=== PATIENT | female | born 1985 | race Caucasian/White ===

== ENCOUNTER 2016-08-24 20:21 | Emergency (ER) | payer BC ==
[~2016-08-24] VITALS: Ht 162.6 cm; Wt 74.1 kg
[~2016-08-24 20:21] MED LIST: CEPH500T PO; HYDR-4246 PO
--- OUTSIDE RECORDS SUMMARY | 2016-08-24 20:25 | XMS REPORT | Continuity of Care Document ---
Author Author [facility] Organization [facility] Address Unknown Phone Unavailable Support Name Relationship Address Phone OTHER Caregiver Unknown [phone] REYNA LUCAS MD Caregiver [address] [place] [address] [place] [address] NIKKO CRWAFORD Next Of Kin [address] [place] [address] Insurance Providers Payer Name Policy Number Subscriber Name Relationship Self Pay Joi Crawford 17 Self Problems Medical Problems Problem Onset Date Status Kidney stone on right side Unknown Active Medications Medication Dose Route Sig Days/Qty Instructions Order Date Discontinued Date Status Hydrocodone/Acetaminophen 1-2 Tab PO EVERY 4-6 HOURS PRN PAIN 30 Qty Active Cephalexin 1 Tab PO TWICE A DAY 7 Days 03/15/14 Active Social History Social History Problem Response Recorded Date/Time Smoking Status Never smoker 03/15/2014 4:17pm Hospital Discharge Instructions No hospital discharge instructions. Plan of Care No plan of care. Functional Status Query Response Date Recorded Physical Hygiene Self March 15, 2014 4:17pm Disabilities None March 15, 2014 4:17pm Devices Used None March 15, 2014 4:17pm Dressing Self March 15, 2014 4:17pm Ambulation Self March 15, 2014 4:17pm Diet Self March 15, 2014 4:17pm Mental Status Alert Oriented March 15, 2014 4:17pm Disabilities None March 15, 2014 4:17pm Devices Used None March 15, 2014 4:17pm Physical Hygiene Self March 15, 2014 4:17pm Dressing Self March 15, 2014 4:17pm Ambulation Self March 15, 2014 4:17pm Diet Self March 15, 2014 4:17pm Allergies, Adverse Reactions, Alerts No known allergies. Immunizations No immunization records. Vital Signs Acute Vital Signs Vital Response Date/Time Temperature (Fahrenheit) 98.0 deg F (96.8 - 99.1) Temperature (Calculated Celsius) 36.61652 degrees C (36.0 - 37.3) Pulse Rate (adult) 85 bpm (60 - 100) Respiratory Rate 20 breaths/min (10 - 20) O2 Sat by Pulse Oximetry 97 % (90 - 100) Blood Pressure 129/71 mm Hg Height 5 ft 4 in Weight 147 lb Body Mass Index 25.0 kg/m^2 Results Test Source Date Result Interp. Ref. Range Comments Urine Bacteria March 15, 2014 4:13pm 1+ H - Has specimen been collected/obtained? Y Urine Bilirubin March 15, 2014 4:13pm Negative - Has specimen been collected/obtained? Y Urine Blood March 15, 2014 4:13pm 3+ H - Has specimen been collected /obtained? Y Urine Collection Type March 15, 2014 4:13pm Voided-not cc-midstr - Has specimen been collected/obtained? Y Urine Color March 15, 2014 4:13pm Yellow - Has specimen been collected/obtained? Y Urine Culture Indicated March 15, 2014 4:13pm Cult not indicated - Has specimen been collected/obtained? Y Urine Glucose (UA) March 15, 2014 4:13pm Negative - Has specimen been collected/obtained? Y Urine Ketones March 15, 2014 4:13pm Negative - Has specimen been collected/obtained? Y Urine Leukocyte Esterase March 15, 2014 4:13pm Negative - Has specimen been collected/obtained? Y Urine Mucus March 15, 2014 4:13pm Present - Has specimen been collected/obtained? Y Urine Nitrite March 15, 2014 4:13pm Negative - Has specimen been collected/obtained? Y Urine Protein March 15, 2014 4:13pm Negative - Has specimen been collected/obtained? Y Urine RBC March 15, 2014 4:13pm 20-30 /HPF H - Has specimen been collected/obtained? Y Urine Specific [place] March 15, 2014 4:13pm >=1.030 H - Has specimen been collected/obtained? Y Urine Squamous Epithelial Cells March 15, 2014 4:13pm 0-5 - Has specimen been collected/obtained? Y Urine Turbidity March 15, 2014 4:13pm Clear - Has specimen been collected/obtained? Y Urine Urobilinogen March 15, 2014 4:13pm 0.2 EU/DL - Has specimen been collected/obtained? Y Urine WBC March 15, 2014 4:13pm 1-3 /HPF - Has specimen been collected/obtained? Y Urine pH March 15, 2014 4:13pm 6.0 - Has specimen been collected/ obtained? Y Procedures No known history of procedures. Encounters Encounter Location Date/Time Departed Emergency Room [facility] 03/15/14 4:03pm Recent Diagnosis
--- OUTSIDE RECORDS SUMMARY | 2016-08-24 20:25 | XMS REPORT | Continuity of Care Document ---
Author Author [facility] Organization [facility] Address Unknown Phone Unavailable Allergies Active Description Code Type Severity Reaction Onset Reported/Identified Relationship to Patient Clinical Status Yes latex latex Drug Allergy Unknown N/A 11/21/2010 Yes No Known Allergies No Known Allergies Drug Allergy Unknown N/A 10/30/2014 Medications Problems Date Dx Coded Attending Type Code Diagnosis Diagnosed By 09/04/2012 Jeffrey SOLO, Merritt Hsieh 789.03 ABDOMINAL PAIN, RIGHT LOWER QUADRANT 04/03/2013 Kevin SOLO, Gyoo Lee 641.21 SHIVA SEPAR PLACEN-DELIV 04/03/2013 Goyo Brown MD 663.31 CORD ENTANGLE NEC-DELIV 04/03/2013 Goyo Brown MD V22.1 SUPERVIS OTH NORMAL PREG 04/03/2013 Goyo Brown MD V27.0 DELIVER-SINGLE LIVEBORN 06/22/2014 Shanon SOLO, Tamy Hsieh 656.63 EXCESS FET GRTH-ANTEPART 10/30/2014 Tamy Claudio MD 276.8 HYPOPOTASSEMIA 10/30/2014 Tamy Claudio MD 642.51 SEVERE PREECLAMP-DELIVER 10/30/2014 Tamy Claudio MD 669.82 COMPL DEL NEC-DEL W P/P 10/30/2014 Tamy Claudio MD V27.0 DELIVER-SINGLE LIVEBORN Procedures Code Description Performed By Performed On 73.09 ARTIF RUPT MEMBRANES MAYURI Brown MD, Goyo Flores 04/03/2013 73.4 MEDICAL INDUCTION LABOR Kevin SOLO, Goyo Flores 04/03/2013 73.59 MANUAL ASSIST DELIV Goyo Llamas MD 04/03/2013 73.09 ARTIF RUPT [employer]BRANES MAYURI Ireland MD, Sherita Hsieh 10/30/2014 73.4 MEDICAL INDUCTION LABOR Beka SOLO, Sherita A 10/30/2014 73.59 MANUAL ASSIST DELIV MAYURI Ireland MD, Collier A 10/30/2014 Results Test Result Range CBC - 04/03/13 08:40 MEAN CELL HGB 30.5 pg 27.0-33.0 MEAN CELL HGB CONCENTRATION 34.1 g/dL 32.0-37.0 MEAN CELL VOLUME 89.4 fl 80.0-100.0 RED BLOOD CELL 3.67 m/cumm 4.00-6.00 RED CELL DISTRIBUTION WIDTH 13.5 % 11.0- 15.6 WHITE BLOOD CELL 8.9 k/cumm 5.0-10.0 HEMOGLOBIN 11.2 gm/dL 12.0-16.0 HEMATOCRIT 32.8 % 37.0-47.0 PLATELET COUNT 210 k/cumm 150-400 HEMOGLOBIN - 04/03/13 18:40 MEAN CELL VOLUME 88.0 fl 80.0-100.0 HEMOGLOBIN 11.5 gm/dL 12.0-16.0 UR PROTEIN/CREATININE RATION - 10/30/14 18:00 UR CREATININE COMMENT RANDOM UR PROTEIN COMMENT RANDOM UR TOTAL PROTEIN LEVEL 41.6 mg/dL 0.0- 11.9 UR CREATININE LEVEL 167.0 mg/dL 44-467 UR PROTEIN/CREATININE RATIO 249 mg/gm < 200 CBC - 10/30/14 18:10 MEAN CELL HGB 30.2 pg 27.0-33.0 MEAN CELL HGB CONCENTRATION 34.6 g/dL 32.0-37.0 MEAN CELL VOLUME 87.3 fl 80.0-100.0 RED BLOOD CELL 4.10 m/cumm 4.00-6.00 RED CELL DISTRIBUTION WIDTH 13.4 % 11.0- 15.6 WHITE BLOOD CELL 12.1 k/cumm 5.0-10.0 HEMOGLOBIN 12.4 gm/dL 12.0-16.0 HEMATOCRIT 35.8 % 37.0-47.0 PLATELET COUNT 194 k/cumm 150-400 METABOLIC PANEL, COMPREHN - 10/30/14 18:10 POTASSIUM 2.7 mmol/L 3.5-5.3 EST GFR (MDRD) > 60 mL/min > 59 ANION GAP 15 mmol/L 5-15 GLUCOSE 82 mg/dL 70-99 CALCIUM 8.7 mg/dL 8.5-10.1 BLOOD UREA NITROGEN 5 mg/dL 7-20 CREATININE 0.5 mg/dL 0.6-1.0 SODIUM 142 mmol/L 135-148 CHLORIDE 106 mmol/L 98-110 AST/SGOT 15 Units/L 10-37 ALT/SGPT 11 Units/L < 66 CARBON DIOXIDE 21 mmol/L 21-32 TOTAL PROTEIN 6.7 gm/dL 6.4-8.2 ALBUMIN 2.6 gm/dL 3.4-5.0 BILI TOTAL 0.3 mg/dL 0.0-1.0 ALKALINE PHOSPHATASE TOTAL 154 IU/L 45- 117 URIC ACID - 10/30/14 18:10 URIC ACID 3.4 mg/dL 2.6-6.0 LACTATE DEHYDROGENASE (LDH/LD) - 10/30/14 18:10 LACTATE DEHYDROGENASE (LDH/LD) 152 Units/L 81-234 CORD VENOUS BLOOD GAS - 10/31/14 03:50 VENOUS CORD BLOOD BASE EXCESS -2.6 meq/L -5.8-0.7 COMMENT VENOUS VENOUS CORD BLOOD HCO3 21.7 meq/L 17.4- 25.4 VENOUS CORD BLOOD PCO2 36 mm Hg 28-57 VENOUS CORD BLOOD PH 7.39 7.23-7.46 VENOUS CORD BLOOD PO2 32 mm Hg 15-42 VENOUS CORD BLOOD O2 SAT 62 % 14-75 CORD ARTERIAL BLOOD GAS - 10/31/14 03:50 ARTERIAL CORD BLD BASE EXCESS -1.4 meq/L -7.6-1.3 COMMENT ARTERIAL ARTERIAL CORD BICARBONATE 24.8 meq/L 16.0 -27.1 ARTERIAL CORD BLOOD PCO2 47 mm Hg 32-69 ARTERIAL CORD BLOOD PH 7.34 7.14-7.40 ARTERIAL CORD BLOOD PO2 24.2 mm Hg 8-33 ARTERIAL CORD BLOOD O2 SAT 48 % 5-59 URINALYSIS, ROUTINE - 10/31/14 06:40 UA LEUKOCYTE ESTERASE DIPSTICK TRACE NEGATIVE UA NITRITE DIPSTICK NEGATIVE NEGATIVE UA PROTEIN DIPSTICK TRACE NEGATIVE UA GLUCOSE DIPSTICK NEGATIVE NEGATIVE UA KETONE DIPSTICK 1+ NEGATIVE UA UROBILINOGEN DIPSTICK NORMAL NORMAL UA BILIRUBIN DIPSTICK NEGATIVE NEGATIVE UA BLOOD DIPSTICK 4+ NEGATIVE UA SPECIFIC GRAVITY 1.006 1.015-1.025 UR PH 7.0 5.0-7.0 UA MICROSCOPIC - 10/31/14 06:40 UA RBC PACKED FIELD rbc/hpf 0 - 3 UA VOLUME FOR EXAM 12.0 mL (12mL STD) UA WBC 0-1 wbc/hpf 0 - 5 CBC - 10/31/14 07:30 MEAN CELL HGB 29.8 pg 27.0-33.0 MEAN CELL HGB CONCENTRATION 34.1 g/dL 32.0-37.0 MEAN CELL VOLUME 87.2 fl 80.0-100.0 RED BLOOD CELL 4.30 m/cumm 4.00-6.00 RED CELL DISTRIBUTION WIDTH 13.2 % 11.0- 15.6 WHITE BLOOD CELL 19.2 k/cumm 5.0-10.0 HEMOGLOBIN 12.8 gm/dL 12.0-16.0 HEMATOCRIT 37.5 % 37.0-47.0 PLATELET COUNT 225 k/cumm 150-400 METABOLIC PANEL, COMPREHN - 10/31/14 07:30 POTASSIUM 2.6 mmol/L 3.5-5.3 EST GFR (MDRD) > 60 mL/min > 59 ANION GAP 14 mmol/L 5-15 EST CrCl (CG) > 60 mL/min > 59 GLUCOSE 110 mg/dL 70-99 CALCIUM 7.4 mg/dL 8.5-10.1 BLOOD UREA NITROGEN 3 mg/dL 7-20 CREATININE 0.7 mg/dL 0.6-1.0 SODIUM 139 mmol/L 135-148 CHLORIDE 102 mmol/L 98-110 AST/SGOT 20 Units/L 10-37 ALT/SGPT 12 Units/L < 66 CARBON DIOXIDE 23 mmol/L 21-32 TOTAL PROTEIN 6.4 gm/dL 6.4-8.2 ALBUMIN 2.4 gm/dL 3.4-5.0 BILI TOTAL 0.4 mg/dL 0.0-1.0 ALKALINE PHOSPHATASE TOTAL 154 IU/L 45- 117 URIC ACID - 10/31/14 07:30 URIC ACID 3.7 mg/dL 2.6-6.0 LACTATE DEHYDROGENASE (LDH/LD) - 10/31/14 07:30 LACTATE DEHYDROGENASE (LDH/LD) 201 Units/L 81-234 CBC - 10/31/14 18:46 MEAN CELL HGB 29.6 pg 27.0-33.0 MEAN CELL HGB CONCENTRATION 33.5 g/dL 32.0-37.0 MEAN CELL VOLUME 88.4 fl 80.0-100.0 RED BLOOD CELL 4.22 m/cumm 4.00-6.00 RED CELL DISTRIBUTION WIDTH 13.3 % 11.0- 15.6 WHITE BLOOD CELL 15.4 k/cumm 5.0-10.0 HEMOGLOBIN 12.5 gm/dL 12.0-16.0 HEMATOCRIT 37.3 % 37.0-47.0 PLATELET COUNT 214 k/cumm 150-400 METABOLIC PANEL, COMPREHN - 10/31/14 18:46 POTASSIUM 3.0 mmol/L 3.5-5.3 EST GFR (MDRD) > 60 mL/min > 59 ANION GAP 10 mmol/L 5-15 EST CrCl (CG) > 60 mL/min > 59 GLUCOSE 124 mg/dL 70-99 CALCIUM 7.4 mg/dL 8.5-10.1 BLOOD UREA NITROGEN 3 mg/dL 7-20 CREATININE 0.7 mg/dL 0.6-1.0 SODIUM 139 mmol/L 135-148 CHLORIDE 102 mmol/L 98-110 AST/SGOT 21 Units/L 10-37 ALT/SGPT 13 Units/L < 66 CARBON DIOXIDE 27 mmol/L 21-32 TOTAL PROTEIN 6.1 gm/dL 6.4-8.2 ALBUMIN 2.3 gm/dL 3.4-5.0 BILI TOTAL 0.3 mg/dL 0.0-1.0 ALKALINE PHOSPHATASE TOTAL 143 IU/L 45- 117 URIC ACID - 10/31/14 18:46 URIC ACID 3.7 mg/dL 2.6-6.0 LACTATE DEHYDROGENASE (LDH/LD) - 10/31/14 18:46 LACTATE DEHYDROGENASE (LDH/LD) 262 Units/L 81-234 CREATININE FOR CRCL - 10/31/14 18:46 CREATININE 0.7 mg/dL 0.6-1.0 UR CREATININE CLEARANCE - 10/31/14 21:50 UR CREAT CLEAR MARK DURATION 24 hrs CREAT CLEARANCE (W/BSA CORREC) 105 mL/minm2 80-125 P'T. HEIGHT FOR CRCL 64 inches P'T. WEIGHT FOR CRCL 164 lbs UR CREATININE TOTAL VOLUME 6840 mL UR CREATININE LEVEL 16.1 mg/dL 44-467 CREAT FOR CRCL 0.7 mg/dL 0.6-1.0 UR PROTEIN - 10/31/14 21:51 UR PROTEIN CALCULATED 1662.1 mg/day < 149.1 UR PROTEIN MARK DURATION 24 hrs UR TOTAL PROTEIN LEVEL 24.3 mg/dL 0.0- 11.9 UR PROTEIN TOTAL VOLUME 6840 mL POTASSIUM - 11/01/14 06:07 POTASSIUM 2.9 mmol/L 3.5-5.3 CBC - 11/01/14 09:14 MEAN CELL HGB 30.1 pg 27.0-33.0 MEAN CELL HGB CONCENTRATION 34.1 g/dL 32.0-37.0 MEAN CELL VOLUME 88.1 fl 80.0-100.0 RED BLOOD CELL 4.19 m/cumm 4.00-6.00 RED CELL DISTRIBUTION WIDTH 13.5 % 11.0- 15.6 WHITE BLOOD CELL 14.1 k/cumm 5.0-10.0 HEMOGLOBIN 12.6 gm/dL 12.0-16.0 HEMATOCRIT 36.9 % 37.0-47.0 PLATELET COUNT 224 k/cumm 150-400 METABOLIC PANEL, COMPREHN - 11/01/14 09:14 POTASSIUM 3.3 mmol/L 3.5-5.3 EST GFR (MDRD) > 60 mL/min > 59 ANION GAP 11 mmol/L 5-15 EST CrCl (CG) > 60 mL/min > 59 GLUCOSE 90 mg/dL 70-99 CALCIUM 7.5 mg/dL 8.5-10.1 BLOOD UREA NITROGEN 4 mg/dL 7-20 CREATININE 0.7 mg/dL 0.6-1.0 SODIUM 141 mmol/L 135-148 CHLORIDE 103 mmol/L 98-110 AST/SGOT 21 Units/L 10-37 ALT/SGPT 11 Units/L < 66 CARBON DIOXIDE 27 mmol/L 21-32 TOTAL PROTEIN 6.4 gm/dL 6.4-8.2 ALBUMIN 2.4 gm/dL 3.4-5.0 BILI TOTAL 0.3 mg/dL 0.0-1.0 ALKALINE PHOSPHATASE TOTAL 145 IU/L 45- 117 URIC ACID - 11/01/14 09:14 URIC ACID 3.9 mg/dL 2.6-6.0 LACTATE DEHYDROGENASE (LDH/LD) - 11/01/14 09:14 LACTATE DEHYDROGENASE (LDH/LD) 303 Units/L 81-234 METABOLIC PANEL, BASIC - 11/01/14 13:54 POTASSIUM 3.1 mmol/L 3.5-5.3 EST GFR (MDRD) > 60 mL/min > 59 ANION GAP 12 mmol/L 5-15 EST CrCl (CG) > 60 mL/min > 59 GLUCOSE 117 mg/dL 70-99 CALCIUM 7.9 mg/dL 8.5-10.1 BLOOD UREA NITROGEN 8 mg/dL 7-20 CREATININE 0.8 mg/dL 0.6-1.0 SODIUM 142 mmol/L 135-148 CHLORIDE 105 mmol/L 98-110 CARBON DIOXIDE 25 mmol/L 21-32 Encounters ACCT No. Visit Date/Time Discharge Status Pt. Type Provider Facility Loc./Unit Complaint [id number] 10/30/2014 20:11:00 2014 11:15:00 DIS Inpatient Shanon SOLO, [facility]5WH [id number] 10/26/2014 13:07:00 2014 13:07:00 [id number] 06/22/2014 10:00:00 2014 23:59:59 CLS [facility]readmit [id number] 05/05/2014 15:11:00 2014 15:11:00 [facility] [id number] 04/03/2013 07:31:00 2012 11:35:00 [id number]/17/2013 07:19:00 2012 08:30:00 DIS [id number] 09/04/2012 13:16:00 2012 13:16:00 DIS Outpatient Jeffrey SOLO, [facility]U [id number] 09/21/2014 10:37:00 Document Registration [id number] 09/21/2014 10:37:00 Document Registration [id number] 09/21/2014 10:37:00 Document Registration [id number] 09/21/2014 10:37:00 Document Registration [id number] 09/21/2014 10:37:00 Document Registration [id number] 09/21/2014 10:36:00 Document Registration [id number] 09/21/2014 10:36:00 Document Registration [id number] 09/21/2014 10:36:00 Document Registration
[2016-08-24 20:26] VITALS: Ht 162.6 cm; Wt 74.1 kg
--- NOTE | 2016-08-24 20:31 | NUR ---
PROVIDER DR ADAMS IN TO SEE PATIENT.
--- NOTE | 2016-08-24 20:33 | NUR ---
REPORT REPORT GIVEN TO JAYLA MCQUEEN AND PT HAN MARKHAM.
[2016-08-24] MEDS ORDERED: CETI-269 PO (20:34)
--- OUTSIDE RECORDS SUMMARY | 2016-08-24 20:41 | XMS REPORT | Continuity of Care Document ---
Author Author [facility] Organization [facility] Address Unknown Phone Unavailable Support Name Relationship Address Phone OTHER Caregiver Unknown [phone] REYNA LUCAS MD Caregiver [address] [place] [address] [place] [address] INKKO CRAWFORD Next Of Kin [address] [place] [address] Insurance Providers Payer Name Policy Number Subscriber [...] F (96.8 - 99.1) Temperature (Calculated Celsius) 36.17820 degrees C (36.0 - 37.3) Pulse Rate [...] Has specimen been collected/obtained? Y Urine Specific [place] March 15, 2014 4:13pm >=1.030 H - [...] Encounters Encounter Location Date/Time Departed Emergency Room [facility] 03/15/14 4:03pm Recent Diagnosis
--- OUTSIDE RECORDS SUMMARY | 2016-08-24 20:41 | XMS REPORT | Continuity of Care Document ---
Author Author [facility] Organization [facility] Address Unknown Phone Unavailable Allergies Active Description Code Type Severity Reaction Onset Reported/Identified Relationship to Patient Clinical Status Yes latex latex Drug Allergy Unknown N/A 11/21/2010 Yes No Known Allergies No Known Allergies Drug Allergy Unknown N/A 10/30/2014 Medications Problems Date Dx Coded Attending Type Code Diagnosis Diagnosed By 09/04/2012 Jeffrey SOLO, Merritt Hsieh 789.03 ABDOMINAL PAIN, RIGHT LOWER QUADRANT 04/03/2013 Kevin SOLO, Goyo Lee 641.21 SHIVA SEPAR PLACEN-DELIV 04/03/2013 Goyo [...] 73.59 MANUAL ASSIST DELIV MAYURI Ireland MD, [place] A 10/30/2014 Results Test Result Range CBC [...] Status Pt. Type Provider Facility Loc./Unit Complaint [id number] 10/30/2014 20:11:00 2014 11:15:00 DIS Inpatient Shanon SOLO, [facility] [id number] 10/26/2014 13:07:00 2014 13:07:00 [facility] [id number] 06/22/2014 10:00:00 2014 23:59:59 CLS Preadmit [facility] [id number] 05/05/2014 15:11:00 2014 15:11:00 [facility] [id number] 04/03/2013 07:31:00 2012 11:35:00 [id number] 03/17/2013 07:19:00 2012 08:30:00 DIS Emergency [facility] [id number] 09/04/2012 13:16:00 2012 13:16:00 DIS Outpatient Jeffrey SOLO, [facility] WWRAU [id number] 09/21/2014 10:37:00 Document Registration [id number] 09/21/2014 10:37:00 Document Registration [id number] 09/21/2014 10:37:00 Document Registration [id number] 09/21/2014 10:37:00 Document Registration [id number] 09/21/2014 10:37:00 Document Registration [id number] 09/21/2014 10:36:00 Document Registration [id number] 09/21/2014 10:36:00 Document Registration [id number] 09/21/2014 10:36:00 Document Registration
[2016-08-24] MEDS ORDERED: LORAZEPAM 2 MG/ML INJECTION IV ONE (20:45)
--- NOTE | 2016-08-24 20:51 | ERPDOC ---
Departure Disposition Decision Date: August 24, 2016 Disposition Decision Time: 22:09 Disposition: 01 DISCHARGED HOME, SELF-CARE Impression Impression Impression: Primary Impression: Dyspnea Dyspnea type: shortness of breath Qualified Codes: R06.02 - Shortness of breath Severity: Moderate Condition: Improved Seen By: Physician only Referrals: Yumiko ROCKWELL MD (Family) Patient Instructions: Dyspnea (ED) Problems/Meds/Labs Reviewed?: Yes Medications reviewed and manag: Yes Additional Instructions: Take Pepcid 20 mg, 2 tablets daily for baseline control of stomach acid Compazine 10 mg one tablet up to 3 times daily as needed for nausea/chest tightness/stomach cramps See Dr. Rockwell next week if not improving or return to ER for any significant worsening Follow up care ordered?: Yes Mental Status: Alert Scripts Prochlorperazine Maleate (Compazine) 10 Mg Tablet 10 MG PO QID, #30 TAB 0 Refills Prov: NYDIA ADAMS MD 08/24/16 Famotidine (Pepcid) 20 Mg Tablet 40 MG PO DAILY, #60 TAB 0 Refills Prov: NYDIA ADAMS MD 08/24/16 HPI - General Medical General Chief Complaint: Psychiatric Problems Stated Complaint: SOA,TINGLING Time Seen by Provider: 20:28 Source: patient Exam Limitations: no limitations HPI - General Medical Initial Comments Feeling short of breath for two weeks, as though she just cannot breath deeply enough. No pain, chest discomfort, fevers, chills, or nausea. but just not getting any better. Then today she has been having tingling to her fingers and some carpel spasms. No anxiety or panic attacks in past. Has not seen her pcp Dr. Rockwell for this. Occurred At: home Onset: Gradual Severity: moderate Associated Symptoms: shortness of breath, DENIES: chest pain, cough, diaphoresis, fever/chills, headaches, loss of appetite, malaise, nausea/vomiting , rash, seizure, syncope, weakness Hx of Similar Symptoms: No Allergies: Coded Allergies: No Known Allergies (Unverified , 08/24/16) Past History Past Medical History Female: UTI, kidney stones Surgical History General: gallbladder Surgical History Comments ortho surg Social History Smoking Status: Never smoker Does patient use chewing tobac: No Second Hand Exposure: No Substance Use Type: does not use Alcohol Intake: none Record Review Pertinent history updated: Yes Review of Systems Constitutional Constitutional: DENIES: appetite decrease, appetite increase, chills, dizziness , fever, weakness ENMT Ears: DENIES: pain Hearing: DENIES: hearing loss, tinnitus Balance: DENIES: vertigo Mouth/Throat: DENIES: change in swallowing, change in voice, hoarsness, painful swallowing, sore throat Cardiovascular Cardiac: DENIES: chest pain, dyspnea on exertion Rhythm/Rate: DENIES: irregular beat, palpitations, tachycardia Vascular: DENIES: pedal edema Pulmonary Respiratory: dyspnea, DENIES: cough, exposure to TB, hyperventilation, last PPD , pleuritic chest pain, pneumonia hx, recent risky activities, sputum, tachypnea GI Upper Abdomen: DENIES: dysphagia, heartburn/indigestion, nausea, pain, vomiting Lower Abdomen: DENIES: blood in stool, constipation, diarrhea, pain General: DENIES: burning, dysuria, frequency, pain, urgency Musculoskeletal General: DENIES: cramps, joint pain, joint swelling, pain, weakness Integumentary Skin: DENIES: rash, sores Neurological General: DENIES: headache, numbness, tingling, vertigo, weakness Psychiatric Psychiatric: DENIES: anxiety, depression, nervousness Physical Exam General General Nourishment: well nourished, well developed, appears stated age, no acute distress General Body Habitus: well groomed Vitals and Pain First Documented Vital Signs Date Time Temp Pulse Resp B/P Pulse Ox O2 Delivery O2 Flow Rate FiO2 08/24/16 20:26 97.2 84 24 115/61 99 Room Air Weight: Kilograms: 74.100 Height (feet): 5 Height (inches): 4.00 Triage Pain Scale: RN VS reviewed by Provider: Yes Comments Pt appears anxious with jumpiness, speech at height of inspiration, elevated brow, and wide eyes. Normal Exams: Head: Normocephalic w/o trauma Eyes: Pupils are PERRLA w/ EOMI, No scleral icterus, irritation, or foreign bodies noted ENMT: No facial trauma, nasal exudates, pharyngeal erythema, or exudates are noted Neck: Full range of motion, without adenopathy, JVD, bruits or thyromegaly Chest/Resp: Clear all penn, with good airflow, and symmetry bilaterally CV: Regular rate and rhythm, without murmur or gallop, Pulses 2+ all extremities, capillary refill, <2 seconds all ext., no pedal edema noted Abdomen: Bowel sounds positive, soft, non-tender, non-distended, no hepatosplenomegaly, masses or bruits noted Lymphatic: No lymphadenopathy, or lymphedema noted Musculoskeletal: No tenderness, or deformity noted, good range of motion, all extremities Integumentary: No rashes, hives, or bruising noted, hair and nails, without abnormality Neurologic: Patient is alert, and oriented, cranial nerves, motor/sensory/ cerebellar, exams w/o gross deficits, to observation Psychiatric: Patient exhibits, appropriate attention, emotion and affect Progress Results/Orders Orders Procedure Category Date Status Time Iv Lock (Ed Only) EDM 08/24/16 Transmitted 20:36 Cbc W/Auto LAB 08/24/16 Complete Diff-Reflex Manual Cmp - Comprehensive LAB 08/24/16 Complete Metabolic D-Dimer LAB 08/24/16 Complete 20:36 Chest, Pa & Lateral RAD 08/24/16 Taken Troponin I W LAB 08/24/16 Complete Hemolysis Index EKG EKG 08/24/16 Taken LAB 08/24/16 Complete Qualitative, Urine 20:36 Lorazepam (Ativan) PHA 08/24/16 Complete 20:45 Ranitidine (Zantac) PHA 08/24/16 Complete 21:30 Metoclopramide PHA 08/24/16 Complete (Reglan) 21:30 Nitroglycerin PHA 08/24/16 In Process (Nitrostat) 21:30 Normal Saline (Normal PHA 08/24/16 Complete Saline Iv) 21:30 Lab Results Laboratory Tests Test 08/24/16 20:46 08/24/16 21:08 White Blood Count 16.9T/MM3 Red Blood Count 4.78M/MM3 Hemoglobin 15.0GM/DL Hematocrit 43.1% Mean Corpuscular Volume 90.2UM3 Mean Corpuscular Hemoglobin 31.4UUG Mean Corpuscular Hemoglobin Concent 34.8GM/DL RDW Standard Deviation 40.2FL Platelet Count 314T/MM3 Mean Platelet Volume 11.0UM3 Immature Granulocyte % (Auto) % Neutrophils (%) (Auto) % Lymphocytes (%) (Auto) % Monocytes (%) (Auto) % Eosinophils (%) (Auto) % Basophils (%) (Auto) % Absolute Immature Granulocyte (auto T/MM3 Absolute Neutrophils (auto) T/MM3 Absolute Lymphocytes (auto) T/MM3 Absolute Monocytes (auto) T/MM3 Absolute Eosinophils (auto) T/MM3 Absolute Basophils (auto) T/MM3 Neutrophils % (Manual) 60.0% Lymphocytes % (Manual) 31.0% Monocytes % (Manual) 4.0% Eosinophils % (Manual) 5.0% Absolute Neutrophils (Manual) 10.1T/MM3 Lymphocytes # (Manual) 5.2T/MM3 Monocytes # (Manual) 0.7T/MM3 Eosinophils # (Manual) 0.8T/MM3 Red Cell Morphology Comment Normal D-Dimer < 150NG/ML Turbidity < 20 Sodium Level 143MEQ/L Potassium Level 3.4MEQ/L Chloride Level 106MEQ/L Carbon Dioxide Level 22MEQ/L Anion Gap 15MEQ/L Blood Urea Nitrogen 13.0MG/DL Creatinine 0.6MG/DL Glomerular Filtration Rate Calc 116 BUN/Creatinine Ratio 22RATIO Glucose Level 106MG/DL Calculated Osmolality 275MOSM/KG Calcium Level 9.9MG/DL Total Bilirubin 0.60MG/DL Icterus Index < 2 Aspartate Amino Transf (AST/SGOT) 29U/L Alanine Aminotransferase (ALT/SGPT) 56U/L Alkaline Phosphatase 100U/L Troponin I < 0.012ng/ml Total Protein 7.6G/DL Albumin 4.5G/DL Globulin 3.1G/DL Albumin/Globulin Ratio 1.5RATIO Chemistry Specimen Hemolysis 31 Urine Test Negative Medications Current ED Medications Lorazepam (Ativan) 1 mg O ONCE IV Last administered on 08/24/16 20:48; Start 08/24/16 at 20:45; Stop 08/24/16 at 20:46; Status DC Ranitidine HCl (Zantac) 300 mg O ONCE PO Last administered on 08/24/16 21:36; Start 08/24/16 at 21:30; Stop 08/24/16 at 21:31; Status DC Metoclopramide HCl (Reglan) 10 mg O ONCE PO Last administered on 08/24/16 21: 36; Start 08/24/16 at 21:30; Stop 08/24/16 at 21:31; Status DC Nitroglycerin 0.4 mg 0.4 mg Q5MIN PRN SL CHEST PAIN Last administered on 21:37; Start 08/24/16 at 21:30 Sodium Chloride (Normal Saline IV) 1,000 ml @ 0 mls/hr Q0M ONCE IV Last administered on 08/24/16 21:38; Start 08/24/16 at 21:30; Stop 08/24/16 at 21:31; Status DC Progress Progress Patient given Ativan 1 mg to significant reduction in feelings of tingling, but no change in her other symptoms EKG shows a normal sinus rhythm without ischemia, ectopy, or infarction CBC is normal CMP normal D-dimer negative Troponin negative negative UA negative Patient given nitroglycerin 1 with no change Given Zantac 300 milligrams, Reglan 10 mg, with hospital reduction in feelings of shortness of breath/chest tightness. At this point diagnosis is somewhat questionable, however this appears to be symptoms of dyspnea with a stress response possibly related to GERD. We'll treat with Zantac and Compazine when necessary, and have the patient follow-up as an outpatient with Dr. Rockwell next week. NYDIA ADAMS MD August 24, 2016 20:51
[2016-08-24 20:59] LABS: ALBUMIN 4.5 G/DL (3.5-5.0); ALBUMIN/GLOBULIN RATIO 1.5 RATIO (1.1-2.2); ALKALINE PHOSPHATASE 100 U/L (38-126); ALT (SGPT) 56 U/L (9-52); ANION GAP 15 MEQ/L (5-15); AST (SGOT) 29 U/L (14-36); BUN/CREATININE RATIO 22 RATIO (6-26); CALCIUM 9.9 MG/DL (8.4-10.2); CHLORIDE 106 MEQ/L (98-107); CO2 - CARBON DIOXIDE 22 MEQ/L (22-30); CREATININE 0.6 MG/DL (0.7-1.2); GLOMERULAR FILTRATION RATE 116; GLUCOSE 106 MG/DL (65-110); POTASSIUM 3.4 MEQ/L (3.6-5); SODIUM 143 MEQ/L (134-144); TOTAL PROTEIN 7.6 G/DL (6.3-8.2)
[2016-08-24 21:08] LABS: HCT - HEMATOCRIT 43.1 % (36-46); MEAN CORPUSCULAR HGB 31.4 UUG (26-34); MEAN CORPUSCULAR HGB CONC(MCHC 34.8 GM/DL (31-37); MEAN CORPUSCULAR VOLUME 90.2 UM3 (80-100); RED BLOOD COUNT 4.78 M/MM3 (4.00-5.20); WBC - WHITE BLOOD COUNT 16.9 T/MM3 (4.5-11.0)
--- NOTE | 2016-08-24 21:10 | NUR ---
ELIMINATION PATIENT UP TO BR WITH ASSIST OF 1 TO VOID. UA COLLECTED. PATIENT IS COMPLAINING OF SOME DIZZINESS.
[2016-08-24 21:23] LABS: EOSINOPHILS # (MANUAL) 0.8 T/MM3 (0-0.5); LYMPHOCYTES # (MANUAL) 5.2 T/MM3 (1-4.8); MONOCYTES # (MANUAL) 0.7 T/MM3 (0-0.8); NEUTROPHILS #(MANUAL)-ABSOLUTE 10.1 T/MM3 (1.8-7.7); TOTAL CELLS COUNTED 100 %
--- NOTE | 2016-08-24 21:28 | NUR ---
BACK FROM XRAY
[2016-08-24] MEDS ORDERED: NORMAL SALINE 1,000 ML IV ONE (21:30)
[2016-08-24] MEDS ORDERED: RANITIDINE 150 MG TABLET PO ONE (21:30)
[2016-08-24] MEDS ORDERED: NITROGLYCERIN 0.4 MG SUBLINGUAL TABLET SL PRN (21:30)
--- NOTE | 2016-08-24 22:03 | NUR ---
PROVIDER DR ADAMS IN TO SEE PATIENT.
--- NOTE | 2016-08-24 22:04 | NUR ---
STATUS PATIENT IS RATING HER PAIN 3/10, PRESSURE IN CHEST. PATIENT IS HYPERVENTILATING WITH DEEP RAPID BREATHS. TINGLING IN FINGERS IS BETTER.
[2016-08-24] MEDS ORDERED: FAMO-137 PO (22:13)
[2016-08-24] MEDS ORDERED: PROC-14 PO (22:13)
[2016-08-24 22:22] VITALS: BP 130/79; PULSE 85; RESP 22; TEMP 97.2; O2SAT 98
--- NOTE | 2016-08-25 08:02 | DI ---
INDICATION: ITS.REASON: dyspnea PROCEDURE: CHEST 2-VIEWS UPRIGHT (PA \T\ LAT) Encounter: Initial COMPARISON: None FINDINGS: The lungs are clear without evidence of focal abnormal airspace opacity. There is no pleural effusion or pneumothorax. The heart size, mediastinal contours and pulmonary vascularity are within normal limits. There is no significant skeletal abnormality. IMPRESSION: No acute cardiopulmonary disease. .
== END 2016-08-24 22:22 | disposition home or self-care (01) ==
LOC: ED 20:21
DX: R06.02 Shortness of breath (principal); R20.2 Paresthesia of skin
CPT/HCPCS: 36415; 71020; 80053; 81025; 84484; 85025; 85379; 93005; 96361; 96374; 99284; J2060; J7030